=== PATIENT | male | born 1945 | race Caucasian/White ===

== ENCOUNTER 2018-08-29 17:34 | Inpatient (IN) ==
[~2018-08-29 17:34] MED LIST: LASIX IV ONE; ROBITUSSIN-DM PO PRN; SALINE LOCK IV FLUID XX ONE; ZOFRAN IV PRN
--- NOTE | 2018-08-29 18:07 | Diag Imaging Result Doc PS360 ---
EXAM: CHEST-2 VIEWS 08/29/2018 HISTORY: short of breath TECHNIQUE: Two views the chest COMMENT: There is a calcified granuloma in the right upper lobe. There is platelike opacity in both lung bases particularly in the right middle lobe. This has not changed significantly since 03/28/2017. IMPRESSION: Chronic granulomatous and fibrotic changes. Electronically signed by Paul Clarke 08/29/2018 6:04 PM
[2018-08-29] MEDS: XOPENEX NEB INH SCH ×2 (19:23→23:03)
[2018-08-29] MEDS: ADVAIR 250/50 DISKUS INH SCH (19:23)
[2018-08-29 19:41] LABS: BASO# 0.02 X1000 (0.0-0.2); BASO% 0.2 % (0.0-0.8); EOS# 0.19 X1000 (0.0-0.7); EOS% 2.1 % (0.0-10.0); HEMATOCRIT 44.1 % (42.0-52.0); IMM GRAN# 0.02 X1000 (0.0-0.04); IMM GRAN% 0.2 % (0.0-0.5); LYMPH# 0.86 X1000 (1.2-3.4); LYMPH% 9.3 % (20.5-51.1); MCH 31.5 PG (27-31); MCHC 31.7 g/dL (33-37); MCV 99.3 FL (81-99); MONO# 1.06 X1000 (0.11-0.59); MONO% 11.5 % (1.7-9.3); MPV 9.7 FL (7.4-10.4); NEUT# 7.07 X1000 (1.4-6.5); NEUT% 76.7 % (42.2-75.2); PLT 148 X1000 (130-400); RBC 4.44 XMIL (4.7-6.1); RDW 12.8 % (11.5-14.5); WBC 9.22 X1000 (4.8-10.8)
[2018-08-29 20:02] LABS: ALLEN TEST YES; BE 2.5 mmoll (-3.0-3.0); BLOOD TYPE ARTERIAL; HCO3-(ACT) 26.6 mmoll (20.0-26.0); METHB 1.2 % (0.0-1.5); O2(CT) 17.4 mL/dL (15.0-23.0); SAMPLE BLOOD; SAO2 90.9 % (95.0-100.0); THB 14.2 g/dL (11.5-17.4); pH(98.6) 7.26 (7.35-7.45)
[2018-08-29 20:05] LABS: PCO2(98.6) 71 mmHg (35-45)
[2018-08-29 20:06] LABS: MODALITY CANNULA; O2HB 87.4 % (95.0-99.0); PO2(98.6) 49 mmHg (60-100)
[2018-08-29 20:11] LABS: ALB/GLOB RATIO 1.5; ALBUMIN 3.9 g/dL (3.5-5.0); CALCIUM 9.1 mg/dL (8.8-10.2); CREATININE 2.8 mg/dL (0.7-1.2); POTASSIUM 4.6 mmol/L (3.5-5.1); TOTAL BILIRUBIN 0.57 mg/dL (0.20-1.00); TOTAL PROTEIN 6.5 g/dL (6.3-8.3)
[2018-08-29] MEDS: HUMULIN R SUBQ SCH (21:00)
[2018-08-29] MEDS: SOLU-MEDROL IV SCH (21:18)
[2018-08-29] MEDS: ROCEPHIN 1 GM in NS 50 ML IV SCH (21:19)
[2018-08-29] MEDS: LOVENOX SUBQ SCH (21:20)
[2018-08-29] MEDS: CATAPRES PO SCH (21:20)
--- NOTE | 2018-08-30 00:26 | HISTORY AND PHYSICAL ---
DATE OF ADMISSION: 08/29/2018. CHIEF COMPLAINT: Cough, chest congestion, diplopia, possible mild confusion. HISTORY OF PRESENT ILLNESS: The patient is a 73-year-old white male followed in my medical practice who comes with complaints of hoarseness, eyes watering, eyes feeling dizzy and having some double vision and blurry vision over the past 2 weeks, had some headaches, some otalgia, feels like he has been exposed to a lot of pollen and that often set him off as he does not do well with his lungs overall. He has a history of severe restrictive lung disease diagnosed per PFTs in August of 2013, and has been followed in the past by Dr. Garcia. He remains on home oxygen at night, but does not use it during the day and he is on Lasix 20 mg b.i.d. He denies any fever. OTHER MEDICATIONS PRIOR TO ADMISSION: Home oxygen 2 L per minute per nasal cannula at night only, Lasix 20 mg p.o. b.i.d., trazodone 50 mg 3 p.o. at bedtime, Flomax 0.4 mg p.o. at bedtime, Micardis 40 mg p.o. daily, D3 vitamin 1000 international units p.o. daily, clonidine 0.1 mg p.o. t.i.d., Synthroid 50 mcg daily p.o., Cymbalta 60 mg p.o. daily, Norvasc 5 mg p.o. daily, Advair 250/50 one puff b.i.d., albuterol via nebulizer on occasion. He also takes Resperin herbal supplement and apple cider vinegar daily. ALLERGIES: To Augmentin, tetanus immunization, and Avelox. PAST MEDICAL HISTORY: 1. Hypertension. 2. Obesity. 3. GERD. 4. Venous stasis. 5. Chronic insomnia. 6. CRI 7. Hypotension. 8. Severe restrictive lung disease. 9. History of kidney stones. PAST SURGICAL HISTORY: 1. Open cholecystectomy 09/02/1999. 2. Right lower extremity veins stripped. IMMUNIZATIONS: Pneumovax 23 given April of 2018. Prevnar 13 given on 06/08/2016. Zostavax given on 02/01/2014. Influenza vaccination given April of 2018. FAMILY HISTORY: Notable for diabetes mellitus in his father and uncle. No strokes, MIs, hypertension or cancer in the family. SOCIAL HISTORY: The patient lives in [place]. She is and has 4 children. 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 He denies ever smoking. He drinks about 12 beers per week. REVIEW OF SYSTEMS: The patient with EGD and colonoscopies in the past 2 years. PHYSICAL EXAMINATION: VITAL SIGNS: Weight 280 pounds, height 5 feet 6 inches tall, BMI 45, pulse 77, blood pressure 120/67, O2 saturation on room air checked by me 85%. Morbidly obese white male. No major increased work of breathing, but does not appear well. SKIN: Warm and dry. No significant rashes. HEENT: PERRL. EOMI. Sclerae minimal injection. Right TM normal. Left TM slightly occluded with cerumen. Oropharynx mild redness with posterior drainage. Nares fairly clear. NECK: No LA, TMG, JVD, or bruits. CARDIOVASCULAR: RRR without murmur. LUNGS: Ioov-of-xlnasksk expiratory wheezes, possible crackles at the lung bases bilaterally. BACK: No CVA tenderness. ABDOMEN: Very protuberant. Soft. No mass or organomegaly appreciated. GENITOURINARY: Deferred. RECTAL: Deferred. EXTREMITIES: With 3-4+ lower extremity edema with some water blisters over the chin and lower extremities. NEUROLOGIC: Cranial nerves II-XII intact, although the patient complains of some vague paresthesias about the face and some possible mild confusion. ASSESSMENT: 1. Hypoxia. 2. Confusion, rule out hypercapnia. 3. Severe restrictive lung disease requiring home oxygen at night, longstanding. 4. Morbid obesity. 5. Allergic bronchitis. 6. Rule out congestive heart failure. 7. Venous stasis dermatitis/venous insufficiency lower extremities prominently. 8. Chronic renal insufficiency followed by Dr. Moore. 9. Hypothyroidism. 10. Chronic insomnia. 11. Gastroesophageal reflux disease. 12. Hypertension. PLAN: We will admit the patient to CIC or telemetry bed, whichever is available. Continue his home medicines, add Xopenex nebulizer treatments q.4 hours, Solu-Medrol, IV Rocephin. Blood cultures x2, CBC, CMP, proBNP will be obtained. Check chest x-ray. Start healthy heart diet. Check ABG and place him on BiPAP is hypercapnia is noted. We will give him IV Lasix and continue Micardis. Check echocardiogram tomorrow. cc: Isaiah Zelaya MD
[2018-08-30] MEDS: XOPENEX NEB INH SCH ×5 (03:30→19:46)
[2018-08-30] MEDS: HUMULIN R SUBQ SCH ×4 (06:15→20:55)
[2018-08-30] MEDS: SOLU-MEDROL IV SCH ×3 (06:15→20:39)
[2018-08-30] MEDS: NS NEB INH SCH ×3 (07:25→16:02)
[2018-08-30] MEDS: ADVAIR 250/50 DISKUS INH SCH ×2 (07:25→19:46)
[2018-08-30 09:29] LABS: ALLEN TEST YES; BLOOD TYPE ARTERIAL; HCO3-(ACT) 24.7 mmoll (20.0-26.0); METHB 1.2 % (0.0-1.5); O2(CT) 21.4 mL/dL (15.0-23.0); O2HB 91.9 % (95.0-99.0); PO2(98.6) 64 mmHg (60-100); SAMPLE BLOOD; SAO2 95.1 % (95.0-100.0); THB 16.6 g/dL (11.5-17.4); pH(98.6) 7.27 (7.35-7.45)
[2018-08-30 09:31] LABS: PCO2(98.6) 63 mmHg (35-45)
[2018-08-30 09:31] LABS: HEMATOCRIT 43.2 % (42.0-52.0); HEMOGLOBIN 13.7 g/dL (14.0-18.0); LYMPH# 0.41 X1000 (1.2-3.4); LYMPH% 5.3 % (20.5-51.1); MCH 31.4 PG (27-31); MCHC 31.7 g/dL (33-37); MCV 99.1 FL (81-99); MONO# 0.02 X1000 (0.11-0.59); MONO% 0.3 % (1.7-9.3); MPV 9.6 FL (7.4-10.4); NEUT# 7.27 X1000 (1.4-6.5); NEUT% 94.4 % (42.2-75.2); PLT 138 X1000 (130-400); RBC 4.36 XMIL (4.7-6.1); RDW 12.6 % (11.5-14.5)
[2018-08-30 09:32] LABS: MODALITY CANNULA
[2018-08-30] MEDS: MICARDIS PO SCH (09:38)
[2018-08-30] MEDS: FLOMAX PO SCH (09:38)
[2018-08-30] MEDS: CATAPRES PO SCH ×3 (09:38→16:59)
[2018-08-30] MEDS: NORVASC PO SCH (09:38)
[2018-08-30] MEDS: CYMBALTA PO SCH (09:38)
[2018-08-30] MEDS: NORCO-7.5 PO PRN ×2 (09:38→15:02)
[2018-08-30] MEDS: CLARITIN PO SCH (09:45)
[2018-08-30] MEDS: LASIX IV SCH ×2 (09:46→20:39)
[2018-08-30 09:48] LABS: CALCIUM 8.5 mg/dL (8.8-10.2); CREATININE 2.9 mg/dL (0.7-1.2); POTASSIUM 4.4 mmol/L (3.5-5.1)
[2018-08-30 09:56] LABS: BANDS 2 % (0-1); LYMPHS 5 % (21-51); MONO 1 % (1-9); SEGS 92 % (42-75)
--- NOTE | 2018-08-30 13:25 | PROGRESS NOTE ---
DATE: 08/30/2018 SUBJECTIVE: Patient overall feels better, breathing better, although not back to his baseline. He uses home oxygen at night, and has a history of seeing Dr. Garcia years ago. OBJECTIVE: Afebrile. Pulse 90, respirations 20, blood pressure 126/60, and O2 saturation on 5 L 94%. He did use the BiPAP for about 6 hours last night interruptedly.CV: RRR. Lungs: Minimal crackles at the lung bases bilaterally. Abdomen: Very protuberant, large, and nontender. Extremities: 2+ lower extremity edema with some mild redness and some small blister-like lesions consistent with venous stasis dermatitis. Neurologic: Cranial nerves are intact. LABORATORY DATA: White count normal at 9 and 7 respectively, hemoglobin 14, and platelets 148,000. Sodium 134, potassium 4.4, chloride 80, CO2 21, BUN 40, creatinine 2.9. Blood sugars in the 100's. Calcium 8.5. ABG on 40% per nasal cannula reveals pH 7.27, pCO2 63, PO2 64, and HC03 24.7. O2 saturation 95.1. Lactate is elevated at 2.6, whereas it was 0.6 yesterday. Notably, carboxyhemoglobin was 2.7 yesterday, and is down to 2.2. He says he is a nonsmoker. Chest x-ray shows chronic granulomatous and fibrotic changes. ASSESSMENT: 1. Hypoxia with hypercapnia improved. 2. Severe restrictive lung disease requiring home oxygen at night longstanding. 3. Morbid obesity. 4. RAD, rule out component of COPD as patient may be a closet smoker. 5. Allergic bronchitis. 6. Rule out congestive heart failure. proBNP is fairly normal in the 300s. 7. Venous stasis dermatitis with venous insufficiency lower extremities. 8. Chronic renal insufficiency followed by Dr. Moore outpatient. 9. Hypothyroidism. 10. Chronic insomnia. 11. Gastroesophageal reflux disease. 12. Hypertension. PLAN: The patient is on Rocephin, Solu-Medrol, Xopenex nebulizer treatments, and incentive spirometry. Blood cultures are in progress, and are negative thus far. He used BiPAP about 6 hours last night. We will continue BiPAP when napping during the day, and he will use it at night. We counseled him in that regard. Continue IV Lasix. We will change that to 40 mg IV q.12 hours. Continue Micardis. We have an echocardiogram scheduled for today. Results pending. We will ask Dr. Garcia to see the patient for any recommendations long-term for the patient. We counseled him in regard to significant need for weight loss. cc: Isaiah Zelaya MD
[2018-08-30] MEDS: ROCEPHIN 1 GM in NS 50 ML IV SCH (16:59)
[2018-08-30] MEDS: LOVENOX SUBQ SCH (16:59)
[2018-08-30] MEDS: BICITRA PO SCH (20:51)
--- NOTE | 2018-08-30 22:56 | PULMONOLOGY CONSULTATION ---
DATE: 08/30/2018 REQUESTING PHYSICIAN: Isaiah Zelaya MD REASON FOR CONSULTATION: Restrictive lung disease. HISTORY OF PRESENT ILLNESS: Mr. Kidd is a 73-year-old white male with morbid obesity and a BMI greater than 45, who was evaluated in my clinic 11/12/2013 for abnormal PFTs and shortness of breath. Prior to that evaluation, he had a negative sleep study for sleep apnea. The patient's exam was notable for severe restrictive changes, most likely due to massive intra-abdominal fat/obesity. Prior CT scan of the abdomen looking for stones did not reveal fibrotic lung changes in the lung bases. We discussed at length during that visit the importance of weight loss, with followup PFTs. He also had a component of reflux, and reflux precautions were discussed. The patient was scheduled for 2-month followup in 2013, but failed to return to that visit. The patient reports his shortness of breath has worsened over time, and has significantly worsened since he underwent lithotripsy/stone extraction in April at [facility]. The patient required oxygen at the time of discharge. He reports he is only wearing it when he feels like he needs it. He was feeling weaker this week along with symptoms of hayfever/allergic rhinitis, conjunctivitis with some watering of his eyes, increased shortness of breath, and increase hoarseness. His oxygen saturation in Dr. Zelaya's office was low at 85%. PAST MEDICAL HISTORY: 1. Morbid obesity, with a BMI greater than 45. 2. Nephrolithiasis. 3. Gastroesophageal reflux disease. 4. Chronic renal insufficiency, with worsening creatinine. 5. Steroid intolerance with hyperglycemia. 6. Insomnia. 7. Chronic venous stasis of the lower extremities. 8. Status post cholecystectomy. SOCIAL HISTORY: Prior heavy alcohol use and narcotic use. He currently reports he stopped drinking and taking pain medications. He is a never-smoker. FAMILY HISTORY: Positive for brain tumor, heart attacks/coronary artery disease, diabetes and kidney disease. His father on a job accident. PHYSICAL EXAMINATION: Physical exam reveals a morbidly obese male with marked truncal obesity, resting comfortably in a chair in no distress. BP 128/51, heart rate 88, respiratory rate 18, oxygen saturation 93% on 5 L per nasal cannula. HEENT: Pupils are equal and reactive. Oropharynx is clear. Neck is supple. Chest reveals faint crackles at the lung bases with minimal wheeze. Cardiac exam: Distant heart sounds. Normal S1, normal S2. Abdomen is obese and soft. Extremities reveal chronic edema. DIAGNOSTIC DATA: Chest x-ray reveals calcified granuloma at the right apex with some platelike atelectasis in the lung bases, without change compared to 03/28/2017. LABORATORY DATA: Sodium 134, potassium 4.4, chloride 80, bicarbonate 31, BUN 40, creatinine 2.9. Arterial blood gas reveals a pH of 7.27, pCO2 of 63, pO2 of 64. IMPRESSION: A 73-year-old with chronic hypoxemic and chronic hypercapnic respiratory failure. He may have a component of [id number] hypoxemic respiratory failure, possibly related to mild bronchospasm. The patient was in an outside hospital in April and could not be discharged without home oxygen. I suspect that he will need oxygen 24 hours a day. He is more acidotic, and in part this is related to progression of his renal failure. He will likely have more difficulty compensating for his hypercapnic respiratory failure as his renal disease progresses. We had a long discussion about the importance of weight loss. I showed him his CT scan of the abdomen and pelvis from 2011, and explained how the increased adiposity in his abdominal compartment was significantly limiting his diaphragmatic excursion. Although diaphragmatic weakness could be contributing to his problems, I think that this is less likely. I will, however, check an inspiratory and expiratory muscle pressure. RECOMMENDATIONS: 1. Continue oxygen 24 hours a day at discharge. The patient was encouraged to obtain an oximeter so that can follow his oximetry at home. 2. Agree with BiPAP trial this evening, although it may be difficult to qualify for him for a BiPAP device, given no history of tobacco use and no history of sleep apnea. 3. Check inspiratory and expiratory muscle pressures tomorrow. 4. Encourage reflux precautions. 5. Encourage weight loss. 6. Recommend continued Advair at discharge. cc: MD Isaiah Chaves MD
[2018-08-31] MEDS: XOPENEX NEB INH SCH ×7 (00:10→23:31)
[2018-08-31] MEDS: NORCO-7.5 PO PRN (00:16)
[2018-08-31] MEDS: SOLU-MEDROL IV SCH ×3 (04:48→21:45)
[2018-08-31 05:24] LABS: ALLEN TEST YES; BE 3.3 mmoll (-3.0-3.0); BLOOD TYPE ARTERIAL; HCO3-(ACT) 27.5 mmoll (20.0-26.0); O2(CT) 17.4 mL/dL (15.0-23.0); O2HB 96.5 % (95.0-99.0); PO2(98.6) 73 mmHg (60-100); SAMPLE BLOOD; SAO2 100.5 % (95.0-100.0); THB 12.8 g/dL (11.5-17.4); pH(98.6) 7.28 (7.35-7.45)
[2018-08-31 05:25] LABS: MODALITY BI PAP; PCO2(98.6) 68 mmHg (35-45)
[2018-08-31] MEDS: HUMULIN R SUBQ SCH ×4 (06:01→21:47)
[2018-08-31] MEDS: ADVAIR 250/50 DISKUS INH SCH ×2 (07:30→19:55)
[2018-08-31] MEDS: CLARITIN PO SCH (08:56)
[2018-08-31] MEDS: BICITRA PO SCH ×2 (08:56→21:45)
[2018-08-31] MEDS: NORVASC PO SCH (08:56)
[2018-08-31] MEDS: CYMBALTA PO SCH (08:56)
[2018-08-31] MEDS: LASIX IV SCH ×2 (08:56→21:44)
[2018-08-31] MEDS: CATAPRES PO SCH ×3 (08:56→16:22)
[2018-08-31] MEDS: FLOMAX PO SCH (08:56)
[2018-08-31] MEDS: MICARDIS PO SCH (08:57)
[2018-08-31] MEDS: TYLENOL PO PRN ×2 (09:02→21:44)
--- NOTE | 2018-08-31 13:44 | ECHO REPORT ---
ORDER DATE: 08/30/2018 INDICATION: Lower extremity edema. FINDINGS: 1. The right atrium appears normal size. 2. Mild tricuspid regurgitation. The RV systolic pressure is estimated at 62 mmHg suggesting pulmonary hypertension. 3. Normal RV size and systolic function. 4. No significant pulmonic insufficiency. 5. Normal left atrial size with a dimension of 3.1 cm. 6. No mitral valve prolapse. Mild mitral regurgitation. 7. Normal LV size, end-diastolic dimension of 4.7. Normal wall thicknesses with a posterior and interventricular septal wall thickness of 1.0 cm each. Hyperdynamic LV systolic function. The estimated EF appears greater than 70%. No obvious wall motion abnormalities. 8. Aortic valve opens well. It is trileaflet. There is no evidence of stenosis or insufficiency. 9. Aorta appears normal in visualized segments. 10. No pericardial effusion is seen. cc: MD Isaiah Villar MD
--- NOTE | 2018-08-31 15:24 | PROGRESS NOTE ---
DATE: 08/31/2018 SUBJECTIVE: The patient is sitting up, eating his breakfast this morning, was doing generally well. He was able to wear the BiPAP during the night, about 6 hours in all he says. He feels better in regard to shortness of breath. He is having a lot of allergy symptoms still with some sinus drainage. He did see Dr. Garcia yesterday in consultation. OBJECTIVE: Vital Signs: Afebrile, pulse 87, respirations 20, blood pressure 142/73, O2 saturation on 5 L 93 to 99 percent. This is per nasal cannula. Cardiovascular: Regular rate and rhythm. Lungs: CTA, distant breath sounds. Abdomen: Very protuberant, large, morbid obesity noted. Extremities: Trace lower extremity edema. Less redness in the legs. Overall, much improved. Neurologic: Cranial nerves are intact. No confusion identified. LABORATORY DATA: ABG done this morning on BiPAP was pH 7.28, pCO2 68, PO2 73, HC03 27.5, O2 saturation 100.5. Blood cultures remain negative. ASSESSMENT: 1. Hypoxia with hypercapnia. Mild improvement since admission. 2. Severe restrictive lung disease on home oxygen at night. 3. Morbid obesity. 4. Reactive airway disease. 5. Allergic bronchitis. 6. No definite congestive heart failure. 7. Venous stasis dermatitis with venous insufficiency lower extremities. 8. Chronic renal insufficiency, followed by Dr. Moore. 9. Hypothyroidism. 10. Chronic insomnia. 11. Gastroesophageal reflux disease. 12. Hypertension. PLAN: We are going to continue the Rocephin, Solu-Medrol, Xopenex, nebulizer treatments, incentive spirometry. Increase the BiPAP to continual dosing as much as possible during the day and night. Continue Lasix 40 mg IV q.12 hours. Continue Micardis. Echocardiogram results are pending. Continue Advair. Counseled him in regard to weight loss which is imperative. Bicitra has been added per Dr. Garcia. cc: Isaiah Zelaya MD
[2018-08-31] MEDS: ROCEPHIN 1 GM in NS 50 ML IV SCH (16:09)
[2018-08-31] MEDS: LOVENOX SUBQ SCH (16:15)
--- NOTE | 2018-08-31 20:27 | PULMONOLOGY PROGRESS NOTE ---
DATE: 08/31/2018 SUBJECTIVE: The patient reports he wore the BiPAP approximately 6 hours last evening. He does feel slightly better today. OBJECTIVE: Vital Signs: Blood pressure 125/72, heart rate 89, respiratory rate 18, oxygen saturation 97% on nasal cannula. HEENT: Pupils are equal and reactive. Oropharynx is clear. Neck: Is supple. Chest: Reveals shallow breath sounds bilaterally. Cardiac exam: Regular rate, normal S1, normal S2. Abdomen: Obese and soft. Extremities: Reveal chronic lower extremity edema with venous insufficiency. LABORATORIES: The pH 7.28, pCO2 of 68, pO2 of 73 on BiPAP. IMPRESSION: 73-year-old with morbid obesity and a body mass index of 45, restrictive physiology associated with morbid obesity, acute on chronic hypoxemic respiratory failure, chronic hypoxemic and chronic hypercapnic respiratory failure. The patient also has chronic kidney disease. RECOMMENDATIONS: 1. Continue oxygen 24 hours a day. He will require oxygen 24 hours a day at discharge. 2. Continue attempts at BiPAP at bedtime. 3. Await inspiratory, expiratory muscle pressor parameters. 4. Reflux precautions. 5. Encourage weight loss. cc: MD Isaiah Chaves MD
[2018-09-01 03:38] LABS: URINE SOURCE CLEAN CATCH
[2018-09-01 03:41] LABS: BILIRUBIN URINE NEGATIVE (NEGATIVE); BLOOD URINE NEGATIVE (NEGATIVE); COLOR YELLOW; GLUCOSE URINE NEGATIVE (NEGATIVE); KETONE URINE NEGATIVE (NEGATIVE); LEUKOCYTES URINE LARGE (NEGATIVE); NITRITE URINE NEGATIVE (NEGATIVE); PROTEIN URINE TRACE mg/dL (NEGATIVE); TURBIDITY URINE CLEAR (CLEAR); UROBILINOGEN URINE NORMAL (NORMAL)
[2018-09-01 03:46] LABS: UR EPITHELIAL CELLS <10 /HPF (<10); URINE BACTERIA NEGATIVE /HPF; URINE RBC <10 /HPF (<10)
[2018-09-01] MEDS: XOPENEX NEB INH SCH ×6 (03:54→23:27)
[2018-09-01 03:56] LABS: URINE CASTS NONE SEEN; URINE CRYSTALS NONE SEEN; URINE SMALL ROUND CELLS NONE SEEN; URINE YEAST NONE SEEN
[2018-09-01 05:27] LABS: ALLEN TEST YES; BE 6.2 mmoll (-3.0-3.0); BLOOD TYPE ARTERIAL; HCO3-(ACT) 29.5 mmoll (20.0-26.0); O2(CT) 17.4 mL/dL (15.0-23.0); SAMPLE BLOOD; SAO2 91.1 % (95.0-100.0); pH(98.6) 7.38 (7.35-7.45)
[2018-09-01] MEDS: SOLU-MEDROL IV SCH ×2 (05:27→16:35)
[2018-09-01] MEDS: NORCO-7.5 PO PRN ×2 (05:33→22:56)
[2018-09-01 05:35] LABS: PCO2(98.6) 56 mmHg (35-45)
[2018-09-01 05:36] LABS: MODALITY BI PAP; O2HB 88.7 % (95.0-99.0); PO2(98.6) 49 mmHg (60-100)
[2018-09-01] MEDS: HUMULIN R SUBQ SCH ×4 (06:23→20:43)
[2018-09-01 07:43] LABS: HEMATOCRIT 44.1 % (42.0-52.0); HEMOGLOBIN 14.2 g/dL (14.0-18.0); IMM GRAN# 0.04 X1000 (0.0-0.04); IMM GRAN% 0.4 % (0.0-0.5); LYMPH# 0.45 X1000 (1.2-3.4); LYMPH% 4.3 % (20.5-51.1); MCH 31.4 PG (27-31); MCHC 32.2 g/dL (33-37); MCV 97.6 FL (81-99); MONO# 0.23 X1000 (0.11-0.59); MONO% 2.2 % (1.7-9.3); MPV 9.4 FL (7.4-10.4); NEUT# 9.73 X1000 (1.4-6.5); NEUT% 93.1 % (42.2-75.2); PLT 194 X1000 (130-400); RBC 4.52 XMIL (4.7-6.1); RDW 12.5 % (11.5-14.5); WBC 10.45 X1000 (4.8-10.8)
[2018-09-01 08:04] LABS: CALCIUM 8.6 mg/dL (8.8-10.2); CREATININE 2.8 mg/dL (0.7-1.2); POTASSIUM 4.5 mmol/L (3.5-5.1)
[2018-09-01] MEDS: NS NEB INH SCH ×3 (08:10→15:51)
[2018-09-01] MEDS: ADVAIR 250/50 DISKUS INH SCH ×2 (08:10→19:54)
[2018-09-01] MEDS: BICITRA PO SCH ×2 (09:18→20:43)
[2018-09-01] MEDS: LASIX IV SCH ×3 (09:19→20:45)
[2018-09-01] MEDS: CATAPRES PO SCH ×3 (09:20→20:42)
[2018-09-01] MEDS: FLOMAX PO SCH (09:20)
[2018-09-01] MEDS: CLARITIN PO SCH (09:20)
[2018-09-01] MEDS: NORVASC PO SCH (09:20)
[2018-09-01] MEDS: MICARDIS PO SCH (09:20)
[2018-09-01] MEDS: CYMBALTA PO SCH (09:20)
--- NOTE | 2018-09-01 12:34 | PROGRESS NOTE ---
DATE: 09/01/2018 SUBJECTIVE: Patient is overall feeling better. He denies any dysuria. Urinalysis test has been done on him as it was ordered about 3 days ago on admission, but he is asymptomatic. He has had trouble tolerating the BiPAP at night and wants to try his trazodone back, which helps him sleep at night. We will resume at the usual dose. Due to the hypercapnia, we will monitor that closely. Afebrile. OBJECTIVE: Vital Signs: Pulse 83, respirations 18, blood pressure 127/74, O2 saturation on 5 L 94 to 96 percent. CV: RRR. Lungs: May be minimal crackle at the right lung base, otherwise distant breath sounds. Abdomen: Very protuberant with morbid obesity, nontender. Extremities: No calf tenderness. Lower extremity edema 1+ to 2+. Neurologic: Cranial nerves are intact. He is sitting up in the chair a lot, and that seems to be aggravating his venous insufficiency somewhat. ASSESSMENT: 1. Hypoxia with hypercapnia related to #2 and allergic bronchitis. 2. Severe restrictive lung disease. 3. Morbid obesity. 4. Reactive airway disease. 5. Allergic bronchitis. 6. Venous stasis dermatitis with venous insufficiency, lower extremities. 7. Chronic renal insufficiency. 8. Hypothyroidism. 9. Chronic insomnia. 10. Gastroesophageal reflux disease. 11. Hypertension. PLAN: Decrease Solu-Medrol. Continue Rocephin, Xopenex nebulizer treatments, incentive spirometry, BiPAP when he naps and BiPAP continuously at night. Continue Lasix 40 mg IV q. 12 hours. Monitor his electrolytes closely. Continue his BP medication in the form of Micardis. Continue Advair. Bicitra has been added by Dr. Garcia. We will continue efforts in weight reduction. We will try to mobilize the patient more, although he is doing some better. Notably the urine culture has been done; will follow that. Blood cultures x2 since admission are negative. LABS: White count 10.4, hemoglobin 14.2, platelets 194. Sodium 141, potassium 4.5, chloride 96, CO2 of 33. BUN 64, creatinine 2.8, calcium 8.6. ABG on 0.45% FiO2 shows pH 7.38, pCO2 56, PO2 49, HC03 29.5, O2 saturation 91. cc: Isaiah Zelaya MD [facility]
[2018-09-01] MEDS: ROCEPHIN 1 GM in NS 50 ML IV SCH (16:32)
[2018-09-01] MEDS: LOVENOX SUBQ SCH (16:33)
[2018-09-01] MEDS: DESYREL PO SCH (20:43)
[2018-09-02] MEDS: XOPENEX NEB INH SCH ×6 (03:31→22:45)
[2018-09-02 05:31] LABS: ALLEN TEST YES; BE 6.5 mmoll (-3.0-3.0); BLOOD TYPE ARTERIAL; HCO3-(ACT) 29.7 mmoll (20.0-26.0); METHB 1.2 % (0.0-1.5); O2(CT) 16.7 mL/dL (15.0-23.0); SAMPLE BLOOD; SAO2 88.2 % (95.0-100.0); THB 13.9 g/dL (11.5-17.4); pH(98.6) 7.35 (7.35-7.45)
[2018-09-02 05:36] LABS: MODALITY BI PAP; PCO2(98.6) 62 mmHg (35-45); PO2(98.6) 47 mmHg (60-100)
[2018-09-02] MEDS: SOLU-MEDROL IV SCH ×2 (06:03→17:18)
[2018-09-02] MEDS: LASIX IV SCH (06:03)
[2018-09-02] MEDS: HUMULIN R SUBQ SCH ×4 (06:09→21:43)
[2018-09-02] MEDS: TYLENOL PO PRN (06:09)
[2018-09-02] MEDS: ADVAIR 250/50 DISKUS INH SCH ×2 (08:00→20:25)
[2018-09-02] MEDS: NS NEB INH SCH ×3 (08:00→15:50)
[2018-09-02] MEDS: CYMBALTA PO SCH (09:37)
[2018-09-02] MEDS: CLARITIN PO SCH (09:38)
[2018-09-02] MEDS: NORVASC PO SCH (09:38)
[2018-09-02] MEDS: FLOMAX PO SCH (09:39)
[2018-09-02] MEDS: MICARDIS PO SCH (09:39)
[2018-09-02] MEDS: CATAPRES PO SCH ×3 (09:40→16:55)
[2018-09-02] MEDS: BICITRA PO SCH ×2 (09:40→21:43)
--- NOTE | 2018-09-02 12:44 | PROGRESS NOTE ---
DATE: 09/02/2018 SUBJECTIVE: The patient is feeling better overall. He is using incentive spirometer and feels like he is get able to get deeper breaths. He has been ambulating to and from the bathroom without difficulty. He had difficulty wearing the BiPAP at night due to leaks, but has worn it this morning 3 hours without great difficulty. OBJECTIVE: Vitals: Afebrile, pulse 77, respirations 18, blood pressure 145/79, O2 saturation on 4 L 96 to 100 percent per nasal cannula. CARDIOVASCULAR: Regular rhythm and rate, no major murmur. Lungs: Computed tomography angiography. Abdomen: Very protuberant, soft, nontender. One bowel movement noted. Extremities: 1+ lower extremity edema. Some mild redness. Neurologic: Cranial nerves 2-12 intact. Nonfocal. LABORATORY: ABG: Today on FiO2 45% shows pH 7.35, pCO2 62, PO2 47, HC03 29.7, O2 saturation 88%. ASSESSMENT: 1. Hypoxia and hypercapnia, thought related to #2 and 3. 2. Restrictive lung disease, severe, related to his morbid obesity. 3. Allergic bronchitis. 4. Morbid obesity. 5. Venous insufficiency lower extremities with chronic venous stasis dermatitis. 6. Chronic renal insufficiency. 7. Hypothyroidism. 8. Chronic insomnia. 9. Gastroesophageal reflux disease. 10. Hypertension. 11. Episodic low back pain. PLAN: Change IV Lasix to oral Lasix. Continue IV steroids at low dose, Xopenex nebulizer treatments, Rocephin. Ambulate in the room. Wear the BiPAP as much as possible and when not wearing the BiPAP, encouraged him to use oxygen per nasal cannula at 4 L/minute. He has home oxygen and will be on it continuously when he goes home. I instructed him again on weight loss, which is very important. cc: Isaiah Zelaya MD
[2018-09-02] MEDS: ROCEPHIN 1 GM in NS 50 ML IV SCH (16:53)
[2018-09-02] MEDS: LOVENOX SUBQ SCH (16:55)
--- NOTE | 2018-09-02 20:08 | PULMONOLOGY PROGRESS NOTE ---
DATE: 09/02/2018 SUBJECTIVE: The patient reports he feels a little better. He reports his shortness of breath has diminished. OBJECTIVE: Vital Signs: The patient has been afebrile for the last 24 hours. BP 132/72, heart rate 81, oxygen saturation 98% on nasal cannula. HEENT: Pupils are equal and reactive. Oropharynx is clear. Neck: Supple. Chest: Diminished breath sounds bilaterally. Cardiac: S1, S2. Abdomen: Obese and soft. Extremities: Chronic venous insufficiency/edema which appears mild. IMPRESSION: A 73-year-old with: 1. Hypoxic and hypercapnic respiratory failure. 2. Morbid obesity. 3. Restrictive lung physiology, secondary to morbid obesity. 4. Acute on chronic hypoxemic respiratory failure. 5. Chronic hypercapnic respiratory failure. 6. Chronic kidney disease. Overall, he has had some symptomatic improvement. RECOMMENDATIONS: 1. Anticipate the need for oxygen 24 hours a day at the time of discharge. It is not clear whether this has been qualified during his previous admission to the hospital. 2. Continue BiPAP at night while he is improving. 3. Reflux precautions. 4. 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 cc: MD Isaiah Chaves MD
[2018-09-02] MEDS: LASIX PO SCH (21:43)
[2018-09-02] MEDS: DESYREL PO SCH (21:43)
[2018-09-03] MEDS: XOPENEX NEB INH SCH ×4 (02:45→15:55)
[2018-09-03 05:33] LABS: ALLEN TEST YES; BE 5.3 mmoll (-3.0-3.0); BLOOD TYPE ARTERIAL; HCO3-(ACT) 29.1 mmoll (20.0-26.0); PO2(98.6) 109 mmHg (60-100); SAMPLE BLOOD; pH(98.6) 7.33 (7.35-7.45)
[2018-09-03 05:35] LABS: MODALITY CANNULA; PCO2(98.6) 63 mmHg (35-45)
[2018-09-03] MEDS: HUMULIN R SUBQ SCH ×4 (06:22→21:07)
[2018-09-03] MEDS: SOLU-MEDROL IV SCH (06:27)
[2018-09-03 07:32] LABS: BASO# 0.01 X1000 (0.0-0.2); BASO% 0.1 % (0.0-0.8); EOS% 1.1 % (0.0-10.0); HEMATOCRIT 46.5 % (42.0-52.0); HEMOGLOBIN 14.8 g/dL (14.0-18.0); IMM GRAN# 0.22 X1000 (0.0-0.04); IMM GRAN% 2.4 % (0.0-0.5); LYMPH% 5.5 % (20.5-51.1); MCH 31.2 PG (27-31); MCHC 31.8 g/dL (33-37); MCV 98.1 FL (81-99); MONO# 0.52 X1000 (0.11-0.59); MONO% 5.8 % (1.7-9.3); MPV 9.6 FL (7.4-10.4); NEUT# 7.69 X1000 (1.4-6.5); NEUT% 85.1 % (42.2-75.2); PLT 146 X1000 (130-400); RBC 4.74 XMIL (4.7-6.1); RDW 12.7 % (11.5-14.5); WBC 9.04 X1000 (4.8-10.8)
[2018-09-03] MEDS: ADVAIR 250/50 DISKUS INH SCH (07:40)
[2018-09-03 07:52] LABS: CALCIUM 7.4 mg/dL (8.8-10.2); POTASSIUM 3.8 mmol/L (3.5-5.1)
[2018-09-03 08:02] LABS: O2HB 85.7 % (95.0-99.0)
[2018-09-03] MEDS ORDERED: PREDNISONE PO SCH (09:00)
[2018-09-03] MEDS: LASIX PO SCH ×2 (09:55→21:08)
[2018-09-03] MEDS: FLOMAX PO SCH (09:55)
[2018-09-03] MEDS: BICITRA PO SCH ×2 (09:55→21:09)
[2018-09-03] MEDS: MICARDIS PO SCH (09:56)
[2018-09-03] MEDS: CATAPRES PO SCH ×3 (09:56→16:28)
[2018-09-03] MEDS: CLARITIN PO SCH (09:56)
[2018-09-03] MEDS: NORVASC PO SCH (09:56)
[2018-09-03] MEDS: CYMBALTA PO SCH (09:56)
[2018-09-03] MEDS: LOVENOX SUBQ SCH (16:28)
[2018-09-03] MEDS: ROCEPHIN 1 GM in NS 50 ML IV SCH (16:28)
--- NOTE | 2018-09-03 20:00 | PROGRESS NOTE ---
DATE: 09/03/2018 SUBJECTIVE: Patient feels like he is taking deeper breaths and doing better. He is ambulatory around his bed without difficulty. He remains on oxygen 4 L/minute per nasal cannula. He was able to use the BiPAP more readily last night, wore it for about 6 hours. Feels like he has been mobilizing secretions in lungs. OBJECTIVE: Vital signs: Afebrile. Vital signs stable. O2 saturation on 4 L 99%. Cardiovascular: RRR with rare ectopy. Lungs: Distant breath sounds. CTA. Better air movement. Abdomen: Protuberant. Morbid obesity. Extremities: No calf tenderness or cords. Trace lower extremity edema. LABORATORY DATA: ABG shows pH 7.33, pCO2 63, pO2 109, HC03 29, O2 saturation not listed. AA gradient reduced down to 69 from whereas he has been in the 100s to 200s. This is on FiO2 of 36%. BMP shows creatinine of 3.0, potassium 3.8. Blood sugars in the 100s to low 200s. White count 9, hemoglobin 14.8, platelets 146,000. ASSESSMENT: 1. Hypoxia and hypercapnia, thought related to #2. 1. Restrictive lung disease, severe. 2. Morbid obesity. 3. Allergic bronchitis. 4. Chronic venous insufficiency lower extremities with chronic venous stasis dermatitis. 5. Chronic renal insufficiency. 6. Hypothyroidism. 7. Chronic insomnia. 8. Gastrointestinal reflux disease. 9. Hypertension. 10. Episodic low back pain. PLAN: I have spoken with Dr. Garcia, and he agrees that he is ready to be discharged home. He will wear home oxygen at 4 L/minute per nasal cannula continuously as he does not qualify for BiPAP at home at this time. Continue Xopenex, nebulizer treatments with new nebulizer given. Give him oral Omnicef, Prednisone taper, continue Advair and other home medicines to include Zyrtec. Added Bicitra during this hospitalization, and we will continue that, and he will continue to follow with Dr. Moore outpatient to see me in a week and half to 2 weeks and follow up. He will monitor his oxygen saturations at home closely. cc: Isaiah Zelaya MD
[2018-09-03 20:21] VITALS: BP 148/69
[2018-09-03] MEDS: DESYREL PO SCH (21:09)
--- NOTE | 2018-09-09 18:11 | PULMONARY FUNCTION REPORT ---
DATE: 09/03/2018 REQUESTING PHYSICIAN: Dr. Jhonathan Garcia. CLINICAL HISTORY: This is a 73-year-old with shortness of breath. Rule out neuromuscular weakness. Maximum inspiratory pressure -42 cm of water or 42% of predicted. Maximum expiratory pressure 107 cm of water or 59% of predicted. IMPRESSION: Moderate reduction in inspiratory and expiratory muscle pressures. cc: MD Isaiah Chaves MD
--- NOTE | 2018-10-01 05:59 | DISCHARGE SUMMARY ---
ADMISSION DATE: 08/29/2018 DISCHARGE DATE: 09/03/2018 DIAGNOSES: 1. Hypoxia with hypercapnia thought related to #2 and 3. 2. Restrictive lung disease, severe. 3. Morbid obesity. 4. Allergic bronchitis. 5. Chronic venous insufficiency lower extremities with chronic venous stasis dermatitis. 6. Chronic renal insufficiency. 7. Hypothyroidism. 8. Chronic insomnia. 9. Gastroesophageal reflux disease. 10. Hypertension. 11. Episodic low back pain. PROCEDURES: 1. Chest x-ray done 08/29/2018 revealing chronic granulomatous and fibrotic changes. 2. Echocardiogram done 08/30/2018 reveals EF of greater than 70%. No wall motion abnormalities. Mild MR. Hyperdynamic LV systolic function. No pericardial effusion. 3. PFTs were done showing spot O2 saturation of 94% on 2 L/minute. Good patient effort and cooperation and acceptable repeatability. Moderate reduction in inspiratory and expiratory muscle pressures. Rule out neuromuscular weakness CONSULTANTS: Dr. Jhonathan Garcia, pulmonology. REASON FOR ADMISSION AND HOSPITAL COURSE: The patient is a 73-year-old white male who came in with hoarseness, itchy/watery eyes, dizziness, double vision, blurry vision, headaches, otalgia and difficulty breathing. Patient with known history of severe restrictive lung disease. Was followed previously by Dr. Garcia in 2013 and recommended at that time to wear home oxygen at night which he does and he also was advised to lose weight at that time and he has been unable to do so as he is extremely morbidly obese. Patient was found to have hypercapnia. He was maintained on some BiPAP which was difficult for him to wear the first 48 hours, but he began to do better with that and that helped. He was maintained on a low-calorie healthy heart diet, started on IV Solu- Medrol, Rocephin, given Xopenex nebulizer treatments and his other home medications were continued. He was also given some IV Lasix and continued on his Micardis. Echocardiogram was done and was not particularly remarkable. Dr. Garcia saw the patient again in consultation. He recommended weight reduction. PFTs were done. Chest x-ray not particularly remarkable. The patient was counseled in regard to weight loss over several days. By 09/01/2018, the patient was feeling better. We were able to decrease his Solu-Medrol. He was maintained on the BiPAP, Rocephin, Xopenex, and incentive spirometry. Continued Lasix at [address] Garcia added Bicitra. The pCO2 came down from 71 to 56, but by 09/02/2018 it had risen again to 62 and that is where it stabilized. The patient was able to ambulate. Lower extremity edema had improved markedly. He was breathing much better and he was not a candidate for the BiPAP outpatient, but home oxygen was recommended 2 L/minute per nasal cannula day and night. DISCHARGE MEDICATIONS: Otherwise were Zyrtec 10 mg p.o. daily, clonidine 0.1 mg p.o. t.i.d., Pepcid 40 mg p.o. b.i.d., Synthroid 50 mcg p.o. daily, Flomax 0.4 mg p.o. daily, Micardis 40 mg p.o. daily, Norvasc 5 mg p.o. daily, Cymbalta 60 mg p.o. daily, Lasix 40 mg p.o. b.i.d., [place] 7.5 mg p.o. t.i.d. p.r.n. pain, Omnicef 300 mg p.o. b.i.d., prednisone 10 mg p.o. daily tapering gradually over the next few days, Robitussin DM 10 mL p.o. q.4 hours p.r.n. cough, Xopenex nebulizer treatments 1.25 mg q.4 hours, Bicitra 30 mL p.o. b.i.d. He was given a prescription for a home nebulizer. FOLLOWUP: He will follow up in my office around 09/13/2018 and discharged on 4 L/minute per nasal cannula per home O2 continuous. cc: Isaiah Zelaya MD
== END 2018-09-03 22:58 | disposition home health service (06) | DRG 206 ==
LOC: 3N 22:49
PROVIDERS: ADMIT Family Medicine; ATTEND Family Medicine
CPT/HCPCS: 71020; 71046; 80048; 80053; 81001; 82805; 82948; 83880; 84439; 84443; 85025; 87040; 87088; 93306; 94640; 94660; 94761; A9270; C8929; J0696; J1650; J1940; J2930; J7506; J7512; Q9957; XXXXX